=== PATIENT | male | born 1940 | race Caucasian/White ===

== ENCOUNTER 2017-06-26 00:52 | Inpatient (IN) | payer OTHER ==
[~2017-06-26] VITALS: Ht 177.8 cm; Wt 119.0 kg
[~2017-06-26 00:52] MED LIST: ADVAIR 250/501 DISK IH; Advair 250/50 Diskus IH; Advair HFA 115/21 IH; BAYER CHEWABLE81 MG PO; BROVANA15 MCG/2 M IH; BUDESONIDE0.25 MG/2 IH; CARVEDILOL25 MG PO; COREG CR40 M1 PO; Cardizem CD,Cartia X PO; Coreg PO; DILTIAZEM 24HR180 MG PO; DIOVAN HCT 11 TABLE1 PO; Ecotrin PO; FUROSEMIDE40 MG PO; HYDROCHLOROTHIA25 MG PO; K-DUR20 MEQ PO; KLOR-CON M2020 MEQ PO; LASIX20 MG PO; Levaquin PO; PERCOCET 5/31 TABLET PO; PREDNISONE50 MG PO; PROAIR HFA8.5 GM IH; SPIRIVA1 INHALATI IH; VIAGRA100 MG PO; Viagra PO; XARELTO10 MG PO; Xarelto PO; predniSONE PO
[2017-06-26 02:17] LABS: HEMATOCRIT 40.5 % (38.0-50.0); MCH 28.3 PG (29.0-34.0); MCHC 31.1 G/DL (30.0-36.0); MCV 90.8 FL (86-99); MEAN PLAT.VOLUME 9.5 uM^3 (9.0-12.4); PLATELET COUNT 125 K/uL (156-360); RBC DIS.WIDTH-CV 13.2 % (11.8-14.6); RBC DIS.WIDTH-SD 43.8 % (39-53); RED BLOOD COUNT 4.46 M/uL (4.00-5.50)
[2017-06-26 02:26] LABS: CHLORIDE 103 mEq/L (99-109)
[2017-06-26 02:27] LABS: POTASSIUM 4.6 mEq/L (3.7-5.4); SODIUM 144 mEq/L (136-147)
[2017-06-26 02:29] LABS: GLUCOSE 128 mg/dL (70-99)
[2017-06-26 02:30] LABS: ANION GAP 7 MEQ/L (2-14)
[2017-06-26 02:31] LABS: TOTAL BILIRUBIN 0.9 mg/dL (0.0-1.0)
[2017-06-26 02:32] LABS: ALKALINE PHOSPHATASE 41 IU/L (3-129)
[2017-06-26 02:33] LABS: GFR ESTIMATE (CALCULATED) > 59 mL/min/
[2017-06-26 02:34] LABS: DIRECT BILIRUBIN 0.4 mg/dL (0.0-0.3); UREA NITROGEN (BUN) 27 mg/dL (9-23)
[2017-06-26 02:36] LABS: LIPASE 8 U/L (1.0-51.0)
[2017-06-26 02:38] LABS: TROP-I INTERPRETATION NEGATIVE; TROPONIN-I < 0.01 ng/mL (0.0-0.30)
[2017-06-26 03:04] LABS: ADD MIUA? YES; BILIRUBIN NEGATIVE; BLOOD SMALL; COLOR YELLOW ((YELLOW)); GLUCOSE (STRIP) 50; KETONES NEGATIVE; LEUKOCYTES NEGATIVE; NITRITE NEGATIVE; PROTEIN (STRIP) 100; SPECIFIC GRAVITY 1.024 (1.000-1.030)
[2017-06-26 03:29] LABS: BACTERIA RARE /HPF; EPITHELIAL CELLS NONE SEEN /HPF; GRANULAR CASTS 0-5 /LPF; MUCUS 4+ /LPF; UCUL ADDED? NO; WHITE BLOOD CELLS 0-5 /HPF (0-5)
[2017-06-26 07:38] VITALS: BP 174/82
[2017-06-26 10:31] LABS: TROP-I INTERPRETATION NEGATIVE; TROPONIN-I 0.02 ng/mL (0.0-0.30)
[2017-06-26 11:21] VITALS: BP 145/79
[2017-06-26] MEDS ORDERED: COREG25 M1 PO (13:20)
[2017-06-26] MEDS ORDERED: VIAGRA25 MG PO (13:23)
[2017-06-26] MEDS ORDERED: VALSARTAN-HCTZ1 EAC2 PO (13:35)
[2017-06-26 15:08] LABS: TROP-I INTERPRETATION NEGATIVE; TROPONIN-I 0.01 ng/mL (0.0-0.30)
[2017-06-26 15:55] VITALS: BP 151/78
[2017-06-26 19:04] VITALS: BP 141/75
[2017-06-26 23:57] VITALS: BP 144/77
[2017-06-27 03:07] VITALS: BP 135/81
[2017-06-27 07:06] LABS: EOSINOPHIL COUNT 0.1 K/uL (0-0.3); HEMATOCRIT 40.1 % (38.0-50.0); IMMATURE GRANULOCYTE (%) 0.2 % (0.0-0.7); INSTRUMENT ABS NEUTROPHIL CT 3.3 K/uL; LYMPHOCYTE COUNT 0.7 K/uL (1.0-2.8); MCH 28.9 PG (29.0-34.0); MCHC 32.2 G/DL (30.0-36.0); MCV 89.9 FL (86-99); MEAN PLAT.VOLUME 10.3 uM^3 (9.0-12.4); MONOCYTE (%) 9.6 % (3-12); MONOCYTE COUNT 0.4 K/uL (0-0.8); NEUTROPHIL (%) 72.3 % (45-76); NEUTROPHIL COUNT 3.3 K/uL (1.8-6.4); PLATELET COUNT 141 K/uL (156-360); RBC DIS.WIDTH-CV 13.2 % (11.8-14.6); RBC DIS.WIDTH-SD 43.3 % (39-53); RED BLOOD COUNT 4.46 M/uL (4.00-5.50); WHITE BLOOD COUNT 4.6 K/uL (4.1-10.2)
[2017-06-27 07:17] LABS: Estimated Average Glucose 114 mg/dL (70-123); HEMOGLOBIN A1c (GLYCOHEMOGLOB) 5.6 % HGB (Below 5.7)
[2017-06-27 07:28] VITALS: BP 164/91
[2017-06-27 07:45] LABS: ANION GAP 7 MEQ/L (2-14); CHLORIDE 96 MEQ/L (99-109); GFR ESTIMATE (CALCULATED) > 59 mL/min/; POTASSIUM 3.9 MEQ/L (3.7-5.4); SAMPLE HEMOLYSIS CHECK 0; SAMPLE ICTERIC CHECK 0; SAMPLE LIPEMIA CHECK 0; SODIUM 141 MEQ/L (136-147); UREA NITROGEN (BUN) 24 mg/dL (9-23)
[2017-06-27 07:49] LABS: GLUCOSE 88 mg/dL (70-99)
[2017-06-27 13:00] VITALS: BP 132/74
[2017-06-27 15:44] VITALS: BP 156/82
[2017-06-28 00:05] VITALS: BP 140/78
[2017-06-28 06:02] LABS: MCH 29.2 PG (29.0-34.0); MCHC 33.3 G/DL (30.0-36.0); MCV 87.6 FL (86-99); MEAN PLAT.VOLUME 10.3 uM^3 (9.0-12.4); PLATELET COUNT 159 K/uL (156-360); RBC DIS.WIDTH-SD 41.9 % (39-53); RED BLOOD COUNT 4.45 M/uL (4.00-5.50)
[2017-06-28 06:24] LABS: ANION GAP 11 MEQ/L (2-14); CHLORIDE 97 MEQ/L (99-109); GFR ESTIMATE (CALCULATED) > 59 mL/min/; GLUCOSE 93 mg/dL (70-99); POTASSIUM 3.7 MEQ/L (3.7-5.4); SAMPLE HEMOLYSIS CHECK 0; SAMPLE ICTERIC CHECK 0; SAMPLE LIPEMIA CHECK 0; SODIUM 140 MEQ/L (136-147); UREA NITROGEN (BUN) 26 mg/dL (9-23)
[2017-06-28 06:40] VITALS: BP 142/79
[2017-06-28] MEDS ORDERED: CEFDINIR300 MG PO (12:46)
[2017-06-28] MEDS ORDERED: LASIX40 MG PO (12:47)
[2017-06-28 15:05] VITALS: BP 165/86
== END 2017-06-28 17:05 | disposition home or self-care (01) | DRG 291 ==
LOC: EME → EDBD 00:52 → EME 00:52 → EDOF 05:28 → 5EAST 05:28 → ENRESERV 05:30 → 5EAST 07:07
PROVIDERS: Emergency Medicine; Hospitalist; Internal Medicine; Internal Medicine Cardiovascular Disease
DX: I11.0 Hypertensive heart disease with heart failure (principal); J18.9 Pneumonia, unspecified organism; J96.11 Chronic respiratory failure with hypoxia; J44.1 Chronic obstructive pulmonary disease with (acute) exacerbation; E11.9 Type 2 diabetes mellitus without complications; G47.33 Obstructive sleep apnea (adult) (pediatric); M10.9 Gout, unspecified; N40.0 Benign prostatic hyperplasia without lower urinary tract symptoms; I77.811 Abdominal aortic ectasia; I48.2 Chronic atrial fibrillation; E66.01 Morbid (severe) obesity due to excess calories; E78.5 Hyperlipidemia, unspecified; Z99.81 Dependence on supplemental oxygen; Z91.11 Patient's noncompliance with dietary regimen; Z79.82 Long term (current) use of aspirin; Z91.19 Patient's noncompliance with other medical treatment and regimen; Z79.01 Long term (current) use of anticoagulants; Z87.891 Personal history of nicotine dependence; Z68.38 Body mass index [BMI] 38.0-38.9, adult
CPT/HCPCS: 71020; 74176; 80048; 80076; 81003; 82948; 83036; 83690; 83880; 84484; 85025; 85027; 93005; 93306; 94640; 94640 76; 94760; 94799; 99202; 99281; 99285; J0696; J1644; J1940; J7050